=== PATIENT | male | born 1970 | race Caucasian/White ===

== ENCOUNTER 2022-01-21 11:19 | Outpatient (CLI) | payer OTHER | END 2022-01-21 15:47 | disposition home or self-care (01) | LOC: LAB 11:19 | DX: D64.9 Anemia, unspecified (principal); E03.4 Atrophy of thyroid (acquired); E11.9 Type 2 diabetes mellitus without complications; E78.5 Hyperlipidemia, unspecified; N40.1 Benign prostatic hyperplasia with lower urinary tract symptoms; E56.8 Deficiency of other vitamins; N39.0 Urinary tract infection, site not specified; R97.20 Elevated prostate specific antigen [PSA]; E55.9 Vitamin D deficiency, unspecified; Z79.4 Long term (current) use of insulin ==

== ENCOUNTER 2022-02-19 09:03 | Outpatient (CLI) | payer OTHER | END 2022-02-19 09:09 | disposition home or self-care (01) | LOC: LAB 09:03 | PROVIDERS: ATTEND Specialist | DX: E55.9 Vitamin D deficiency, unspecified (principal); E11.9 Type 2 diabetes mellitus without complications ==

== ENCOUNTER 2022-11-20 11:02 | Outpatient (CLI) | payer OTHER | END 2022-11-20 14:30 | disposition home or self-care (01) | LOC: LAB 11:02 | DX: I11.9 Hypertensive heart disease without heart failure (principal); E11.69 Type 2 diabetes mellitus with other specified complication; E78.2 Mixed hyperlipidemia; E55.9 Vitamin D deficiency, unspecified; Z12.5 Encounter for screening for malignant neoplasm of prostate ==